=== PATIENT | male | born 1965 | race Two or more races ===

== ENCOUNTER 2017-01-19 12:22 | Emergency (ER) | payer OTHER ==
--- NOTE | 2017-01-19 14:45 | ED ---
Throat Pain/Nasal Congestion - HPI Summary HPI Summary: Pt here w/ 3 day h/o ST, nasal congestion, sinus pain/pressure, [place], posterior neck/trap tightness/pain and Rt ear pressure/congestion. Has tried ibuprofen w/ o relief and pain is affecting his sleep. Reports he gets this illness with these same sx every year this time of year and typically requires amoxicillin to treat it. He would usually go through his PCP however their office did not have any openings today so he is here. Denies fever, chills, sneezing, coughing , chest pain, ab pain, N/V/D, rash, joint pain. He is not sure if he has a h/o strep? No reported h/o mono. Does have allergies for which he takes a daily antihistamine and uses a nasal spray which is why URI's typically result in a sinus infection (baseline inflammation). Imms are UTD, including menigiococcal. No known sick contacts. - History of Current Complaint Chief Complaint: EDHeadache Time Seen by Provider: 01/19/17 14:10 Hx Obtained From: Patient - Allergies/Home Medications Allergies/Adverse Reactions: Allergies Allergy/AdvReac Type Severity Reaction Status Date / Time No Known Allergies Allergy Verified 07/30/16 22:53 PMH/Surg Hx/FS Hx/Imm Hx Previously Healthy: Yes Endocrine/Hematology History: Reports: Hx Thyroid Disease - benign growth Denies: Hx Diabetes, Hx Anemia Cardiovascular History: Reports: Hx Hypertension Denies: Hx Congestive Heart Failure Respiratory History: Reports: Hx Seasonal Allergies - takes meds daily Denies: Hx Asthma, Hx Chronic Bronchitis GI History: Reports: Hx Gastroesophageal Reflux Disease - controlled w/ PPI Denies: Hx Jaundice History: Denies: Hx Dialysis, Hx Renal Disease - Immunization History Date of Tetanus Vaccine: unknown Date of Influenza Vaccine: unknown Infectious Disease History: No Infectious Disease History: Denies: Traveled Outside the [place] in Last 30 Days - Family History Known Family History: Positive: Cardiac Disease, Hypertension, Diabetes, Other - no hx of ulcer - Social History Occupation: Employed Full-time Lives: Alone Alcohol Use: Rare Hx Substance Use: No Substance Use Type: Reports: None Hx Tobacco Use: No Smoking Status (MU): Never Smoked Tobacco Review of Systems Negative: Fever, Chills Negative: Photophobia, Blurred Vision, Diplopia, Drainage, Erythema Positive: Sore Throat, Ear Ache, Nasal Discharge Negative: Chest Pain Negative: Shortness Of Breath, Cough Gastrointestinal: Negative Positive: no symptoms reported Musculoskeletal: Negative Negative: Rash Positive: Headache. Negative: Weakness, Paresthesia, Numbness, Syncope, Slurred Speech Psychological: Normal All Other Systems Reviewed And Are Negative: Yes Physical Exam Triage Information Reviewed: Yes Vital Signs On Initial Exam: Initial Vitals Temp Pulse Resp BP Pulse Ox 97.9 F 92 18 126/83 98 01/19/17 12:24 01/19/17 12:24 01/19/17 12:24 01/19/17 12:24 01/19/17 12:24 Vital Signs Reviewed: Yes Appearance: Positive: Well-Appearing, No Pain Distress, Well-Nourished Skin: Positive: Warm, Dry - no rash observed Head/Face: Positive: Normal Head/Face Inspection - Rt frontal sinus TTP Eyes: Positive: Normal, EOMI, PAVEL, Conjunctiva Clear. Negative: Conjunctiva Inflammed, Discharge ENT: Positive: Hearing grossly normal, Pharynx normal, Nasal congestion - mucosa w/ erythema and edema. Negative: Nasal drainage, TM bulging - air bubbles behind clear Rt TM - NTTP; Lt TM clear, TM red, Tonsillar swelling, Tonsillar exudate Neck: Positive: Supple, Tenderness @ - anterior cc LN's - no palpable cc LN's however trapezius mm and posterior paracervical mm are taught, hypertonic and TTP Respiratory/Lung Sounds: Positive: Clear to Auscultation, Breath Sounds Present. Negative: Rales, Rhonchi, Stridor, Wheezes Cardiovascular: Positive: Normal, RRR, S1, S2. Negative: Murmur, Rub Abdomen Description: Positive: Nontender, No Organomegaly, Soft Bowel Sounds: Positive: Present Musculoskeletal: Positive: Normal, Strength/ROM Intact Neurological: Positive: Normal, Sensory/Motor Intact, Alert, Oriented to Person Place, Time, CN Intact II-III, Other - (-) Kernig, (-) [facility] - Vital Signs Vital Signs Temp Pulse Resp BP Pulse Ox 01/19/17 12:24 97.9 F 92 18 126/83 98 - Laboratory Lab Statement: Any lab studies that have been ordered have been reviewed, and results considered in the medical decision making process. EENT Course/Dx - Course Course Of Treatment: Pt presents w/ URI, most likely viral in nature. Discussed conservative care and how it works - pt is receptive to these tx's. Also, given his h/o baseline congestion and progression into sinus infection, provided w/ augmentin in the event he does not improve and infact worsens. He will f/u w/ PCP if sx persist and return to ED if danger s/sx present. (-) for meningitis based on H&P but he is aware of this risk. - Diagnoses Provider Diagnoses: URI (upper respiratory infection) Discharge - Discharge Plan Condition: Stable Disposition: HOME Prescriptions: Amoxicillin/Clavulanate TAB* [Augmentin TAB 875*] 875 mg PO BID #20 tab Patient Education Materials: Upper Respiratory Infection (ED) Referrals: Noah Jenkins MD [Primary Care Provider] - Additional Instructions: You most likely have a viral pharyngitis. This does not require antibiotics. You may try conservative care methods (see below) to improve symptoms first. If these do not work, you may start the antibiotic sent to [facility] for you today as you have reported you are prone to sinus infections and inner ear infections with URI illnesses. If you do decide to take the antibiotic, make sure you complete the course and follow-up with your PCP if you do not feel better. *If you develop fever, chills, nausea, vomiting, worsening of neck pain or headache, return to ED May try the following to alleviate ear pain/pressure as well as sore throat: *Saline nasal spray *Salt water throat gargle 2 x day with 8 ounces of warm water + 1/4 teaspoon of salt *Drink 60+ ounces of water daily *Sleep 8+ hours per night *Avoid Dairy and sugar *Hot herbal/decaf tea with lemon & honey *Chicken broth (preferably organic, free range chicken) *Humidifier in house, but especially near bed at night - keep home temperature at 68F or less to prevent evaporation of all moisture from the air *Try a facial steam with or without eucalyptus essential oil. You may also try Vicks vapor rub for decongestion of nasal congestion/sinuses *Try Sudafed for decongestion (ie. reduce pressure in ears) Consider taking Vitamin D3 5,000iu and Vitamin C 1,000mg every day during illness Start probiotics in between and after completion of antibiotics (ie. Yogurt and/ or capsules of L. acidophilus, L. bifidus, L. casei, etc - make sure to get these from the refrigerated food section as they are live and active cultures)
[2017-01-19 14:53] VITALS: BP 134/82
== END 2017-01-19 14:52 | disposition home or self-care (01) ==
LOC: ED 12:22
DX: J06.9 Acute upper respiratory infection, unspecified (principal); R51 Headache; J02.9 Acute pharyngitis, unspecified; H92.09 Otalgia, unspecified ear
CPT/HCPCS: 99281